=== PATIENT | female | born 1980 | race Caucasian/White ===

== ENCOUNTER 2017-08-06 12:26 | Emergency (ER) | payer OTHER ==
[~2017-08-06] VITALS: Ht 152.4 cm; Wt 61.6 kg
[~2017-08-06 12:26] MED LIST: CIPR0.3S RIGHT EAR
[2017-08-06 12:31] VITALS: BP 175/115; PULSE 101; RESP 20; TEMP 99.3; O2SAT 98
[2017-08-06] MEDS ORDERED: KLON2TAB PO (12:40)
[2017-08-06] MEDS ORDERED: ADDE20 PO (12:40)
[2017-08-06] MEDS ORDERED: CLON0.1T PO (12:40)
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
[2017-08-06] MEDS ORDERED: ACETAMINOPHEN/HYDROcodone 325 MG/5 MG TAB PO ONE (13:00)
[2017-08-06] MEDS ORDERED: IBUP800T23 PO (13:38)
[2017-08-06] MEDS ORDERED: HYDR-3516 PO (13:38)
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
[2017-08-06] MEDS ORDERED: HYDR-3583 PO ×2 (14:49→14:54)
[2017-08-06] MEDS ORDERED: MORPHINE SULFATE 4 MG/ML INJ IM ONE (15:00)
== END 2017-08-06 15:43 | disposition home or self-care (01) ==
LOC: PHEFT 12:26
DX: S62.612A Displaced fracture of proximal phalanx of right middle finger, initial encounter for closed fracture (principal); I10 Essential (primary) hypertension; E78.1 Pure hyperglyceridemia; F17.200 Nicotine dependence, unspecified, uncomplicated; Y08.89XA Assault by other specified means, initial encounter; Z86.59 Personal history of other mental and behavioral disorders; Z87.09 Personal history of other diseases of the respiratory system; Z86.79 Personal history of other diseases of the circulatory system; Z87.442 Personal history of urinary calculi; Z86.14 Personal history of Methicillin resistant Staphylococcus aureus infection; Z86.69 Personal history of other diseases of the nervous system and sense organs
CPT/HCPCS: 29125; 73130; 96372; 99284; J2270

== ENCOUNTER 2017-08-09 19:17 | Emergency (ER) | payer OTHER ==
[~2017-08-09] VITALS: Ht 162.6 cm; Wt 61.5 kg
[~2017-08-09 19:17] MED LIST changes: +ADDE20 PO; -CIPR0.3S RIGHT EAR; +CLON0.1T PO; +HYDR-3583 PO; +IBUP800T23 PO; +KLON2TAB PO
[2017-08-09 19:19] VITALS: BP 189/101; PULSE 87; RESP 16; TEMP 98.4; O2SAT 99
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
[2017-08-09 21:14] VITALS: BP 187/91; PULSE 73; RESP 20; O2SAT 100
[2017-08-09] MEDS ORDERED: HYDR-3535 PO (21:47)
[2017-08-09] MEDS ORDERED: IBUP-232 PO (21:47)
[2017-08-09] MEDS ORDERED: CLON0.2T PO (21:47)
[2017-08-09] MEDS ORDERED: cloNIDine HCL 0.1 MG TAB PO ONE (22:00)
[2017-08-09] MEDS ORDERED: ACETAMINOPHEN/HYDROcodone 325 MG/5 MG TAB PO ONE (22:00)
[2017-08-09 22:10] VITALS: BP 181/108
== END 2017-08-09 22:20 | disposition home or self-care (01) ==
LOC: NEPC 19:17
DX: S62.612A Displaced fracture of proximal phalanx of right middle finger, initial encounter for closed fracture (principal); Y08.89XA Assault by other specified means, initial encounter; I10 Essential (primary) hypertension; J45.909 Unspecified asthma, uncomplicated; F31.9 Bipolar disorder, unspecified; F90.9 Attention-deficit hyperactivity disorder, unspecified type; Z87.442 Personal history of urinary calculi; Z72.0 Tobacco use
CPT/HCPCS: 29125; 29280

== ENCOUNTER 2018-02-06 17:37 | Emergency (ER) | payer SELFPAY ==
[~2018-02-06] VITALS: Ht 162.6 cm; Wt 58.1 kg
[~2018-02-06 17:37] MED LIST changes: -CLON0.1T PO; +CLON0.2T PO; +HYDR-3535 PO; -HYDR-3583 PO; +IBUP-232 PO; -IBUP800T23 PO
[2018-02-06 17:41] VITALS: BP 207/118; PULSE 99; RESP 18; TEMP 98.7; O2SAT 97
[2018-02-06] MEDS ORDERED: ROBA500T PO (18:13)
[2018-02-06] MEDS ORDERED: ORPHENADRINE INJ 60 MG/2 ML AMP IM ONE (18:15)
[2018-02-06] MEDS ORDERED: ACETAMINOPHEN/HYDROcodone 325 MG/5 MG TAB PO ONE (18:15)
[2018-02-06] MEDS ORDERED: cloNIDine HCL 0.1 MG TAB PO ONE (18:15)
--- NOTE | 2018-02-06 18:15 | PD ---
HPI Chief Complaint: Fall Time Seen by Provider: 17:59 Travel History International Travel<30 days: No Contact w/Intl Traveler<30days: No Traveled to known affect area: No History of Present Illness HPI 37-year-old female presents emergency department complaining of left shoulder and arm pain that started 4 days ago. Patient states that she fell down some stairs landing on her left shoulder as she was cleaning the stairs. Patient says she is used [id number] time inflammatories without relief. Says that her pain increases with movement and decreases with rest. Denies any numbness tingling. She points to the proximal deltoid and bony prominence of lateral shoulder. Says that she fell, injuring self on trampoline 3 weeks ago was evaluated by Kwaku Chan. Patient states that he said she "tore a muscle" then. Says she was advised to follow up in the ED if the pain persisted. She denies head trauma, loss of consciousness, back pain, neck pain. Says she was prescribed clonidine for hypertension however, she has not been able to take this medication because she has not seen a primary care physician. PFSH Past Medical History ADD: Yes ADHD: Yes Asthma: Yes Blood Disorders: No Bipolar Disorder: Yes Anxiety: Yes Heart Rhythm Problems: Yes Cancer: No Cardiovascular Problems: Yes Chemotherapy: No Diminished Hearing: No Endocrine: No Gastrointestinal Disorders: No Genitourinary: No Hypertension: Yes (states takes no meds at this time) Immune Disorder: No Kidney Stones: Yes Musculoskeletal: No Neurologic: No Psychiatric: No Reproductive: No Respiratory: No Integumentary: Yes (MRSA IN THE PAST) Radiation Therapy: No Seizures: Yes Triglycerides - High: Yes Tetanus Vaccination: < 5 Years Influenza Vaccination: No ?: Not LMP: 01/11/18 : 3 Para: 3 Miscarriage: 0 : 0 Tubal Ligation: Yes Past Surgical History Abdominal Surgery: No AICD: No Arteriovenous Shunt: No Cardiac Surgery: No Ear Surgery: No Endocrine Surgery: No Eye Surgery: No Genitourinary Surgery: Yes (LITHOTRIPSY) Gynecologic Surgery: No Insulin Pump: No Joint Replacement: No Neurologic Surgery: No Oral Surgery: Yes (TEETH REMOVED) Pacemaker: No Thoracic Surgery: No Social History Alcohol Use: No Tobacco Use: Yes (1 PPD) Substance Use: No Allergies-Medications (Allergen,Severity, Reaction): Coded Allergies: No Known Allergies (Verified Adverse Reaction, Unknown, 02/06/18) Reported Meds & Prescriptions Reported Meds & Active Scripts Active Robaxin (Methocarbamol) 500 Mg Tab 500 Mg PO TID 3 Days Clonidine (Clonidine HCl) 0.2 Mg Tab 0.2 Mg PO BID Reported Klonopin (Clonazepam) 2 Mg Tab 2 Mg PO HS Adderall (Amphetamine-Dextroamphetamine) 20 Mg Tab 20 Mg PO DAILY Avoid late evening doses. Space doses at least 4 to 6 hours if more than once/day dosing. Review of Systems Except as stated in HPI: all other systems reviewed are Neg Physical Exam Narrative GENERAL: Well-nourished, well-developed patient, anxious appearing SKIN: Focused skin assessment warm/dry. HEAD: Normocephalic. EYES: No scleral icterus. No injection or drainage. NECK: Supple, trachea midline. No JVD or lymphadenopathy. No midline tenderness CARDIOVASCULAR: Regular rate and rhythm without murmurs, gallops, or rubs. RESPIRATORY: Breath sounds equal bilaterally. No accessory muscle use. GASTROINTESTINAL: Abdomen soft, non-tender, nondistended. MUSCULOSKELETAL: No cyanosis, or edema. BACK: No CVA tenderness. No rash. No point tenderness on palpation of the spine. left shoulder-tenderness palpation to the lateral shoulder, acromion process. Tenderness palpation to the musculature with associated muscle spasms. Mild tenderness palpation to the upper trapezius region. Limited range of motion secondary to pain Data Data Last Documented VS Vital Signs Date Time Temp Pulse Resp B/P (MAP) Pulse Ox O2 Delivery O2 Flow Rate FiO2 02/06/18 20:19 02/06/18 17:59 16 97 Room Air 02/06/18 17:41 98.7 99 Orders Orders Shoulder, Complete (>2vws) (02/06/18 ) Orphenadrine Inj (Norflex Inj) (02/06/18 18:15) Acetamin-Hydrocod 325-5 Mg ([place] 5-325 (02/06/18 18:15) Clonidine (Catapres) (02/06/18 18:15) Ed Discharge Order (02/06/18 18:53) Clonidine (Catapres) (02/06/18 19:30) MDM Medical Decision Making Medical Screen Exam Complete: Yes Emergency Medical Condition: Yes Differential Diagnosis Left shoulder fracture, left shoulder strain, left shoulder muscle spasm Narrative Course 37-year-old female presents emergency department evaluation of left shoulder pain after fall that occurred a couple days ago. Patient states that this is a reinjury from 3 weeks ago after falling on a trampoline. Vital signs demonstrate elevated blood pressure. Clonidine, hydrocodone, Norflex administered. Patient had multiple doses of anti-inflammatories today. X-ray demonstrates no acute process. Patient advised to follow-up with orthopedics for further evaluation. Advised to perform range of motion exercises to reduce complications. Repeat dosing of clonidine administered due to elevated blood pressure. Her blood pressure did decrease with this dose and after some relaxation. She will be discharged and advised to follow up with her PCP. Continue NSAIDs for pain. Robaxin for muscle spasms. Diagnosis Primary Impression: Shoulder injury Qualified Codes: S49.92XA - Unspecified injury of left shoulder and upper arm , initial encounter Additional Impression: Elevated blood pressure reading Referrals: Alber Asif MD Orthopedist Primary Care Physician Additional Instructions: Use ice or heat for symptom relief. If no contraindications, you may use Tylenol or Motrin per package instructions for your pain. Elevate the joint above the heart to reduce swelling. You may use compression with Anders wrap or similar to reduce swelling. If symptoms persist or worsen, return to the emergency department. Follow up with your primary care physician within 2 days. Scripts Methocarbamol (Robaxin) 500 Mg Tab 500 MG PO TID for Muscle Spasm for 3 Days, TAB 0 Refills Prov: Carmen Chi MD 02/06/18 Disposition: 01 DISCHARGE HOME Condition: Stable Melissa Mason Feb 06, 2018 18:15
--- NOTE | 2018-02-06 18:41 | RADRPT ---
EXAM DATE/TIME: 02/06/2018 18:32 [facility] COMPARISON: No previous studies available for comparison. INDICATIONS : Left shoulder pain after falling off a trampoline 3 weeks ago and falling down stairs 3 days ago. MEDICAL HISTORY : None. SURGICAL HISTORY : None. ENCOUNTER: Initial ACUITY: 3 weeks PAIN SCORE: 10/10 LOCATION: Left shoulder. FINDINGS: Multiple view examination of the left shoulder demonstrates no evidence of fracture or dislocation. The glenohumeral and acromioclavicular joints are maintained. There is normal range of motion betwee n internal and external rotation. Bony mineralization is normal. CONCLUSION: Normal radiographic appearance of the left shoulder. Bruno Bustos MD on February 06, 2018 at 18:38 Board Certified Radiologist. This report was verified electronically.
[2018-02-06 19:30] VITALS: BP 204/120
[2018-02-06] MEDS ORDERED: cloNIDine HCL 0.2 MG TAB PO ONE (19:30)
[2018-02-06 20:18] VITALS: BP 188/119
== END 2018-02-06 20:29 | disposition home or self-care (01) ==
LOC: PHEFT 17:37
DX: S49.92XA Unspecified injury of left shoulder and upper arm, initial encounter (principal); R03.0 Elevated blood-pressure reading, without diagnosis of hypertension; I10 Essential (primary) hypertension; F90.9 Attention-deficit hyperactivity disorder, unspecified type; F31.9 Bipolar disorder, unspecified; J45.909 Unspecified asthma, uncomplicated; E78.1 Pure hyperglyceridemia; W10.9XXA Fall (on) (from) unspecified stairs and steps, initial encounter; Z86.69 Personal history of other diseases of the nervous system and sense organs
CPT/HCPCS: 73030; 96372; 99283; J2360